=== PATIENT | male | born 1965 | race Caucasian/White ===

== ENCOUNTER 2016-07-29 23:43 | Emergency (ER) | payer SELFPAY ==
[~2016-07-29] VITALS: Ht 177.8 cm; Wt 84.4 kg
[2016-07-29 23:46] VITALS: BP 179/112
== END 2016-07-30 00:56 | disposition home or self-care (01) ==
LOC: ED 23:59
DX: S61.001A Unspecified open wound of right thumb without damage to nail, initial encounter (principal); X58.XXXA Exposure to other specified factors, initial encounter; Y93.89 Activity, other specified; Y99.8 Other external cause status; Y92.89 Other specified places as the place of occurrence of the external cause
CPT/HCPCS: 99283

== ENCOUNTER 2016-10-26 22:35 | Emergency (ER) | payer MEDICAID ==
[~2016-10-26] VITALS: Ht 177.8 cm; Wt 84.4 kg
[2016-10-27 00:37] VITALS: BP 144/85
== END 2016-10-27 01:23 | disposition home or self-care (01) ==
LOC: ED 10-27 00:27
DX: S52.134A Nondisplaced fracture of neck of right radius, initial encounter for closed fracture (principal); G89.11 Acute pain due to trauma; W19.XXXA Unspecified fall, initial encounter; Y93.89 Activity, other specified; Y99.8 Other external cause status; Y92.89 Other specified places as the place of occurrence of the external cause
CPT/HCPCS: 29125; 99284

== ENCOUNTER 2017-01-13 01:36 | Emergency (ER) | payer MEDICAID ==
[~2017-01-13] VITALS: Ht 177.8 cm; Wt 84.1 kg
[2017-01-13 01:37] VITALS: BP 158/98
[2017-01-13] MEDS ORDERED: DEXAMETHASONE 4 MG/ML, 1ML ONE (02:18)
[2017-01-13] MEDS ORDERED: HYDROmorphone 1 MG/ML, 1ML ONE (02:19)
[2017-01-13] MEDS ORDERED: KETOROLAC 30 MG/1 ML ONE (02:19)
[2017-01-13] MEDS ORDERED: KETOROLAC 30 MG/1 ML IM ONE (02:30)
[2017-01-13] MEDS ORDERED: HYDROmorphone 1 MG/ML, 1ML IM ONE (02:30)
[2017-01-13] MEDS ORDERED: DEXAMETHASONE 4 MG/ML, 1ML PO ONE (02:30)
== END 2017-01-13 04:52 | disposition home or self-care (01) ==
LOC: ED 03:22
DX: M54.42 Lumbago with sciatica, left side (principal)
CPT/HCPCS: 72110; 96372; 99284; J1100; J1170; J1885

== ENCOUNTER 2017-02-16 15:32 | Emergency (ER) | payer MEDICAID ==
[~2017-02-16] VITALS: Ht 177.8 cm; Wt 82.8 kg
[2017-02-16 15:34] VITALS: BP 154/84
[2017-02-16] MEDS ORDERED: HYDROcodone/APAP 5/325 TABLET ONE (15:54)
[2017-02-16] MEDS ORDERED: HYDROcodone/APAP 5/325 TABLET PO ONE (16:00)
== END 2017-02-16 16:05 | disposition left against medical advice (07) ==
LOC: ED 15:59
DX: M79.661 Pain in right lower leg (principal)
CPT/HCPCS: 99281